=== PATIENT | male | born 1975 | race Hispanic/Latino ===

== ENCOUNTER 2019-11-01 12:16 | Emergency (ER) | payer BC, OTHER ==
[~2019-11-01] VITALS: Ht 177.8 cm; Wt 147.0 kg
[~2019-11-01 12:16] MED LIST: LOSARTAN POTAS100 MG PO; MAXALT10 MG PO; TOPAMAX100 MG PO; VERAPAMIL HCL40 MG PO
--- OUTSIDE RECORDS SUMMARY | 2019-11-01 12:20 | XMS REPORT | Continuity of Care Document ---
Author Author [facility] t Organization [facility] Address [address] [place] [address] Phone Unavailable Care Team Providers Care Ocularist Name Role Phone Unavailable Unavailable Problems Condition Name Condition Details Condition Category Status Onset Date Resolution Date Last Treatment Date Treating Clinician Comments Source Obstructive sleep apnea Obst ructive sleep apnea Active Problem 04/05/2017 Rakan ralf Problem Active 2017-04-05 04:22 :[address] [facility] Obesity, unspecified obesity severity, unspecified obe sity type Obesity, unspecified obesity severity, unspecified obesity type Active Problem 04/05/2017 ralf ralf Problem Active 2017-04-05 04:22:[address] 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 Allergies, Adverse Reactions, Alerts Allergy Name Allergy Type Status Severity Reaction(s) Onset Date Inacti ve Date Treating Clinician Comments Source N.K.D.A. N.K.D.A. Active Info Not Available 2016-12-02 00:00:00 [facility] Medications Ordered Medication Name Filled Medication Name Start Date Stop Da te Current Medication? Ordering Clinician Indication Dosage Frequency Signature (SIG) Comments Components Source Rizatriptan Benzoate 2017-04-05 04:22:47 Yes Rakan Bledsoe 1 tablet as needed one time [facility] Verapamil HCl 2017-04-05 04:22:47 Yes Rakan Bledsoe [address] [facility] Losartan Potassium 2017-04-05 04:22:47 Yes Rakan Bledsoe 1 tablet [facility] Trazodone HCl 2017-04-05 04:22:47 Yes Rakan Bledsoe 1 tablet at bedtime [facility] Vital Signs Vital Name Observation Time Observation Value Comments Source Weight 2016-12-02 19:30:00 [facility] Heart Rate 2016-12-02 19:30:00 [facility] Diastolic (mm Hg) 2016-12-02 19:30:00 [facility] Systolic (mm Hg) 2016-12-02 19:30:00 [facility] Weight 2016-11-22 21:30:00 [facility] Heart Rate 2016-11-22 21:30:00 [facility] Diastolic (mm Hg) 2016-11-22 21:30:00 [facility] Systolic (mm Hg) 2016-11-22 21:30:00 [facility] [place] Procedures This patient has no known procedures. Encounters Start Date/Time End Date/Time Encounter Type Admission Type [facility] Care Department Encounter ID Source 2016-12-02 13:30:00 2016-12-02 13:30:00 Outpatient med Cardiology [facility] [id number] enymotion 2016-11-22 15:30:00 2016-11-22 15:30:00 [facility] [place] [id number] [facility] Results This patient has no known results.
[2019-11-01] MEDS ORDERED: BACITRACIN ZINC 0.9GM TP ONE (12:57)
--- NOTE | 2019-11-01 13:06 | Emergency Department Note ---
History of Present Illnes History of Present Illness History of Present Illness This is a 44 year old male hx htn c/o rash on his right forearm for 1 week, becoming pain full . Arrival Mode: Car Onset (how long ago): week(s) Radiation: Reports non-radiation Severity: moderate Onset quality: gradual Progression: worsening Relieving factors: none Exacerbating factors: none Associated symptoms: Reports denies other symptoms Treatments prior to arrival: other (44 yo [place] obese, itchy rash right anterior elbow for 1 week, became painfull, c/w eczema and infected secondarily. cellulitis, tx with Bactrim and topical Mupirocin) Past Medical/Family History Physician Review I have reviewed the patient's past medical and family history. Any updates have been documented here. Past Medical History Recent Fever: No Clinical Suspicion of Infectio: No Past Medical History: Hypertension Other Medical History: SLEEP APNEA Past Surgical History: None Social History Smoking Cessation: Never Smoker Alcohol Use: None Any Illegal Drug Use: No TB Exposure/Symptoms: No Physically hurt or threatened: No Other Last Tetanus: UTD Any Pre-Existing Lines (PICC,: No Review of Systems Review of Systems Constitutional: Reports no symptoms EENTM: Reports no symptoms Cardiovascular: Reports no symptoms Respiratory: Reports no symptoms Gastrointestinal: Reports no symptoms Genitourinary: Reports no symptoms Musculoskeletal: Reports no symptoms Integumentary: Reports no symptoms, Reports as per HPI, Reports rash (4 x 4 cm area of macerated and erythema (scratching mensah) tender, warm, no abscess) Neurological: Reports no symptoms Psychological: Reports no symptoms Endocrine: Reports no symptoms Hematological/Lymphatic: Reports no symptoms Physical Exam Related Data Allergies: Coded Allergies: No Known Allergies (Unverified , 09/02/15) Physical Exam CONSTITUTIONAL HENT EYES NECK PULMONARY CARDIOVASCULAR GASTROINTESTINAL GENITOURINARY SKIN MUSCULOSKELETAL NEUROLOGICAL PSYCHOLOGICAL Assessment & Plan Medical Decision Making MDM Likely eczema rash then it became infected secondarily Assessment & Plan Final Impression: (1) Cellulitis (2) Eczema intertrigo Depart Disposition: HOME, SELF-FDC Meds Active Scripts Sulfamethoxazole/Trimethoprim (BACTRIM 400-80 MG TABLET) 1 Each Tablet, 1 TAB PO BID for 10 Days Prov:FREDI CARVER MD 11/01/19 Reported Medications Losartan Potassium (LOSARTAN POTASSIUM) 100 Mg Tablet, 50 MG PO DAILY, TAB 09/02/15 Rizatriptan Benzoate (MAXALT) 10 Mg Tablet, 10 MG PO PRN 07/11/15 Verapamil Hcl (VERAPAMIL HCL) 40 Mg Tablet, 40 MG PO HS 07/11/15 Topiramate* (TOPAMAX*) 100 Mg Tablet, 50 MG PO HS 07/11/15 Medications in the ED Bacitracin Zinc 1 ea STK-MED ONCE TP ; Start 11/01/19 at 12:57; Stop 11/01/19 at 12:52; Status DC FREDI CARVER MD Nov 01, 2019 13:06
[2019-11-01] MEDS ORDERED: BACTRIM 400-801 EACH PO (13:23)
== END 2019-11-01 13:20 | disposition home or self-care (01) ==
LOC: FSED 12:16
DX: L03.113 Cellulitis of right upper limb (principal); L30.4 Erythema intertrigo
CPT/HCPCS: 99283